=== PATIENT | male | born 1990 | race Hispanic/Latino ===

== ENCOUNTER 2020-10-01 16:30 | Emergency (ER) | payer SELFPAY ==
--- OUTSIDE RECORDS SUMMARY | 2020-10-01 16:33 | XMS REPORT | Continuity of Care Document ---
:1990 Author Organization [facility] t Address [address] [place] [address] Care Team Providers Name Role Phone Tod De Los Santos Attending Clinician Doctor Unassigned, Name Attending Clinician Unavailable Problems This patient has no known problems. Allergies, Adverse Reactions, Alerts This patient has no known allergies or adverse reactions. Medications This patient has no known medications. Procedures This patient has no known procedures. Encounters Start End Encounter Admission Attending Care Care Encounter Source Date/Time Date/Time Type Type Clinicians Facility Department ID 2019-02-28 2019-02-28 [facility] [id number] 16:34:50 22:20:00 Yris Jones [id number] [place] [id number] [place] [id number] 2019-02-28 2019-02-28 Orders Doctor ORANTES [id number] 00:00:00 00:00:00 Only UnassignedGRACIELA [id number] [place] [id number] Results This patient has no known results.
--- NOTE | 2020-10-01 19:30 | ER ---
Nurse's Notes [facility] Name: Noman Cabral Jr Age: 30 yrs Sex: Male : 1990 Arrival Date: 10/01/2020 Time: 16:36 Bed 28 Private MD: Diagnosis: Streptococcal tonsillitis Presentation: 10/01 16:39 Chief complaint: Patient states: Sore throat and slight cough for 2 days. Daughter had ll1 strep recently. Coronavirus screen: Client denies travel out of the [place] in the last 14 days. cough unrelated to allergies, headache, sore throat, Client presents with at least one sign or symptom that may indicate coronavirus-19. Standard/surgical mask placed on the client. Ebola Screen: Patient denies travel to an Ebola-affected area in the 21 days before illness onset. Initial Sepsis Screen: Does the patient meet any 2 criteria? No. Patient's initial sepsis screen is negative. Does the patient have a suspected source of infection? Yes: Other: sore throat/cough. Risk Assessment: Do you want to hurt yourself or someone else? Patient reports no desire to harm self or others. Onset of symptoms was September 30, 2020. 16:39 Method Of Arrival: Ambulatory ll1 16:39 Acuity: JULIANA 4 ll1 Historical: - Allergies: 16:41 No Known Allergies; ll1 - PMHx: 16:41 None; ll1 - PSHx: 16:41 Right femur fx; ll1 - Immunization history:: Flu vaccine is up to date. - Social history:: Smoking status: Patient reports the use of cigarette tobacco products, smokes one-half pack cigarettes per day. Screenin:24 Abuse screen: Denies threats or abuse. Nutritional screening: No deficits noted. ll1 Tuberculosis screening: No symptoms or risk factors identified. Fall Risk None identified. Total Tolbert Fall Scale indicates No Risk (0-24 pts). Assessment: 19:23 General: Appears in no apparent distress. Behavior is calm, cooperative, appropriate ll1 for age. Pain: Complains of pain in sore throat Quality of pain is described as aching. Neuro: No deficits noted. Cardiovascular: No deficits noted. Respiratory: Airway is patent Trachea midline Respiratory effort is even, unlabored, Respiratory pattern is regular, symmetrical, Breath sounds are clear bilaterally. EENT: Throat is reddened Reports pain when swallowing. Vital Signs: 16:39 BP 149 / 83; Pulse 71; Resp 17; Temp 99.8; Pulse Ox 96% ; Weight 97.52 kg; Height 5 ft. ll1 10 in. (177.80 cm); Pain 8/10; 16:39 Body Mass Index 30.85 (97.52 kg, 177.80 cm) ll1 ED Course: 16:36 Patient arrived in ED. ll1 16:40 Triage completed. ll1 16:41 Arm band placed on. ll1 19:18 Lul Christensen PA is PHCP. jr8 19:18 Larry Ordonez MD is Attending Physician. jr8 19:22 Wiley Davidson, RN is Primary Nurse. em 19:24 Patient has correct armband on for positive identification. Call light in reach. Side ll1 rails up X 1. 19:37 No provider procedures requiring assistance completed. Patient did not have IV access ll1 during this emergency room visit. Administered Medications: No medications were administered Outcome: 19:30 Discharge ordered by . jr8 19:37 Discharged to home ambulatory. ll1 19:37 Condition: stable 19:37 Discharge instructions given to patient, Instructed on discharge instructions, follow up and referral plans. medication usage, Demonstrated understanding of instructions, follow-up care, medications, Prescriptions given X 1. 19:38 Patient left the ED. ll1 Signatures: Wiley Davidson, RN JOSEFA Lul Christensen PA PA Janice Bauman RN RN 1
--- NOTE | 2020-10-01 19:30 | EDPHYS ---
Physician Documentation [facility] Name: Noman Cabral Jr Age: 30 yrs Sex: Male : 1990 Arrival Date: 10/01/2020 Time: 16:36 Bed 28 Private MD: ED Physician Larry Ordonez HPI: 10/01 20:06 This 30 yrs old Male presents to ER via Ambulatory with complaints of Sore jr8 Throat. 20:06 The patient presents with sore throat. The patient describes throat pain as constant, jr8 raw. Onset: The symptoms/episode began/occurred acutely, yesterday. Severity of symptoms: At their worst the symptoms were mild, in the emergency department the symptoms are unchanged. Modifying factors: The symptoms are alleviated by nothing, the symptoms are aggravated by swallowing, The patient has had contact with sick daughter, diagnosed with strep a few days ago. Associated signs and symptoms: The patient has no apparent associated signs or symptoms. The patient has not experienced similar symptoms in the past. The patient has not recently seen a physician. Historical: - Allergies: 16:41 No Known Allergies; ll1 - PMHx: 16:41 None; ll1 - PSHx: 16:41 Right femur fx; ll1 - Immunization history:: Flu vaccine is up to date. - Social history:: Smoking status: Patient reports the use of cigarette tobacco products, smokes one-half pack cigarettes per day. ROS: 20:06 Eyes: Negative for injury, pain, redness, and discharge, Neck: Negative for injury, jr8 pain, and swelling, Cardiovascular: Negative for chest pain, palpitations, and edema, Respiratory: Negative for shortness of breath, cough, wheezing, and pleuritic chest pain, Abdomen/GI: Negative for abdominal pain, nausea, vomiting, diarrhea, and constipation, Back: Negative for injury and pain, MS/Extremity: Negative for injury and deformity, Skin: Negative for injury, rash, and discoloration, Neuro: Negative for headache, weakness, numbness, tingling, and seizure. 20:06 ENT: Positive for sore throat, Negative for drainage from ear(s), ear pain, tinnitus, rhinorrhea, sinus congestion, difficulty swallowing, difficulty handling secretions, hoarseness. Exam: 20:06 Eyes: Pupils equal round and reactive to light, extra-ocular motions intact. Lids and jr8 lashes normal. Conjunctiva and sclera are non-icteric and not injected. Cornea within normal limits. Periorbital areas with no swelling, redness, or edema. ENT: Nares patent. No nasal discharge, no septal abnormalities noted. Tympanic membranes are normal and external auditory canals are clear. Oropharynx with redness. No swelling, or masses, exudates, or evidence of obstruction, uvula midline. Mucous membranes moist. Neck: Trachea midline, no thyromegaly or masses palpated, and no cervical lymphadenopathy. Supple, full range of motion without nuchal rigidity, or vertebral point tenderness. No Meningismus. Cardiovascular: Regular rate and rhythm with a normal S1 and S2. No gallops, murmurs, or rubs. Normal PMI, no JVD. No pulse deficits. Respiratory: Lungs have equal breath sounds bilaterally, clear to auscultation and percussion. No rales, rhonchi or wheezes noted. No increased work of breathing, no retractions or nasal flaring. Abdomen/GI: Soft, non-tender, with normal bowel sounds. No distension or tympany. No guarding or rebound. No evidence of tenderness throughout. Back: No spinal tenderness. No costovertebral tenderness. Full range of motion. Skin: Warm, dry with normal turgor. Normal color with no rashes, no lesions, and no evidence of cellulitis. MS/ Extremity: Pulses equal, no cyanosis. Neurovascular intact. Full, normal range of motion. Neuro: Awake and alert, GCS 15, oriented to person, place, time, and situation. Cranial nerves II-XII grossly intact. Motor strength 5/5 in all extremities. Sensory grossly intact. Cerebellar exam normal. Normal gait. Vital Signs: 16:39 BP 149 / 83; Pulse 71; Resp 17; Temp 99.8; Pulse Ox 96% ; Weight 97.52 kg; Height 5 ft. ll1 10 in. (177.80 cm); Pain 8/10; 16:39 Body Mass Index 30.85 (97.52 kg, 177.80 cm) ll1 MDM: 19:18 Patient medically screened. jr8 19:29 Data reviewed: vital signs, nurses notes, lab test result(s). Data interpreted: Pulse jr8 oximetry: on room air is 96 %. Interpretation: normal. Counseling: I had a detailed discussion with the patient and/or guardian regarding: the historical points, exam findings, and any diagnostic results supporting the discharge/admit diagnosis, lab results, the need for outpatient follow up, a family practitioner, to return to the emergency department if symptoms worsen or persist or if there are any questions or concerns that arise at home. 10/01 19:29 Order name: Strep jr8 10/01 19:29 Order name: Group A Streptococcus Rapid Vt EDMS Administered Medications: No medications were administered Disposition: 10/01/20 19:30 Discharged to Home. Impression: Streptococcal tonsillitis. - Condition is Stable. - Discharge Instructions: Strep Throat. - Prescriptions for Augmentin 875- 125 mg Oral Tablet - take 1 tablet by ORAL route every 12 hours for 10 days; 20 tablet. - Work release form, Medication Reconciliation Form, Thank You Letter, Antibiotic Education, Prescription Opioid Use form. - Follow up: Private Physician; When: 5 - 6 days; Reason: Recheck today's complaints, Continuance of care, Re-evaluation by your physician. - Problem is new. - Symptoms have improved. Addendum: 10/04/2020 19:32 Co-signature as Attending Physician, Larry Ordonez MD. m a2 Signatures: Dispatcher [employer] EDMS Lul Christensen PA PA jr8 Larry Ordonez MD MD ma2 Janice Mathis RN RN ll1 Corrections: (The following items were deleted from the chart) 10/01 19:38 19:30 10/01/2020 19:30 Discharged to Home. Impression: Streptococcal tonsillitis. ll1 Condition is Stable. Forms are Medication Reconciliation Form, Thank You Letter, Antibiotic Education, Prescription Opioid Use. Follow up: Private Physician; When: 5 - 6 days; Reason: Recheck today's complaints, Continuance of care, Re-evaluation by your physician. Problem is new. Symptoms have improved. jr8
[2020-10-01 19:42] VITALS: BP 149/83; TEMP 99.8; O2SAT 96
== END 2020-10-01 19:38 | disposition home or self-care (01) ==
LOC: ER 16:30
DX: J03.00 Acute streptococcal tonsillitis, unspecified (principal); F17.210 Nicotine dependence, cigarettes, uncomplicated
CPT/HCPCS: 87070; 87081; 99282

== ENCOUNTER 2021-04-28 08:33 | Emergency (ER) | payer SELFPAY ==
[2021-04-28] MEDS ORDERED: HYDROCODONE/APAP 10/325 TAB ONE (10:05)
[2021-04-28] MEDS ORDERED: AMOX/K CLAV 875 MG TAB ONE (10:06)
[2021-04-28] MEDS ORDERED: KETOROLAC 30 MG/ML INJ ONE (10:06)
--- NOTE | 2021-04-28 10:49 | EDPHYS ---
Physician Documentation [facility] Name: Noman Cabral Jr Age: 30 yrs Sex: Male : 1990 Arrival Date: 04/28/2021 Time: 08:34 Bed 11 Private MD: ED Physician Tex Price HPI: 04/28 10:46 This 30 yrs old Male presents to ER via Ambulatory with complaints of Facial jmm Swelling - pain. 10:46 The patient presents with pain. Onset: The symptoms/episode began/occurred gradually, 1 jmm day(s) ago. Duration: The symptoms are continuous. Modifying factors: The symptoms are alleviated by nothing, the symptoms are aggravated by nothing. Is a 30-year-old male no chronic medical conditions presents emerge department with right lower molar pain beginning yesterday radiating to his throat. Denies fever, vomiting, shortness of breath.. Historical: - Allergies: 09:06 No Known Allergies; jl7 - Home Meds: 09:06 None [Active]; jl7 - PMHx: 09:06 None; jl7 - PSHx: 09:06 Right femur; jl7 - Immunization history:: Adult Immunizations not up to date, Client reports having NOT received the Covid vaccine. - Social history:: Smoking status: Patient reports the use of cigarette tobacco products. ROS: 10:46 Constitutional: Negative for fever, chills, and weight loss. jmm 10:46 ENT: Positive for dental pain. 10:46 All other systems are negative. Exam: 10:46 Constitutional: This is a well developed, well nourished patient who is awake, alert, jmm and in no acute distress. Head/Face: atraumatic. Eyes: EOMI, no conjunctival erythema appreciated 10:46 Neck: Trachea midline, Supple Chest/axilla: Normal chest wall appearance and motion. Cardiovascular: Regular rate and rhythm. No edema appreciated Respiratory: Normal respirations, no respiratory distress appreciated Abdomen/GI: Non distended, soft Back: Normal ROM Skin: General appearance color normal MS/ Extremity: Moves all extremities, no obvious deformities appreciated, no edema noted to the lower extremities Neuro: Awake and alert, normal gait Psych: Behavior is normal, Mood is normal, Patient is cooperative and pleasant 10:46 ENT: Mouth: Dental exam: pain, that is moderate, specifically in the lower right third molar (#32). 10:46 ENT: Posterior pharynx: is normal. Vital Signs: 09:05 BP 161 / 112; Pulse 82; Resp 17; Temp 98.2(O); Pulse Ox 100% on R/A; Weight 95.25 kg; jl7 Height 5 ft. 9 in. (175.26 cm); Pain 10; 09:50 BP 154 / 84; Pulse 60; Resp 18 S; Pulse Ox 98% on R/A; aa5 09:05 Body Mass Index 31.01 (95.25 kg, 175.26 cm) jl7 MDM: 09:31 Patient medically screened. [facility] 10:48 Data reviewed: vital signs, nurses notes. Counseling: I had a detailed discussion with edward the patient and/or guardian regarding: the historical points, exam findings, and any diagnostic results supporting the discharge/admit diagnosis, the need for outpatient follow up, to return to the emergency department if symptoms worsen or persist or if there are any questions or concerns that arise at home. Administered Medications: 09:45 Drug: Augmentin (Amoxicillin-Clavulanate) 875 mg Route: PO; aa5 10:25 Follow up: Response: No adverse reaction aa5 09:45 Drug: Driggs (HYDROcodone-acetaminophen) 10 mg-325 mg 1 tabs Route: PO; aa5 10:25 Follow up: Response: No adverse reaction aa5 09:47 Drug: Ketorolac 30 mg Route: IM; Site: left gluteus; aa5 10:25 Follow up: Response: No adverse reaction aa5 Disposition: 16:26 Co-signature as Attending Physician, Tex Price MD I agree with the assessment and kdr plan of care. Disposition Summary: 04/28/21 10:49 Discharge Ordered Location: Home [facility] Condition: Stable [facility] Diagnosis - Dental Pain [facility] Followup: [facility] - With: Zach Rodriguez DDS - When: 2 - 3 days - Reason: Recheck today's complaints, Continuance of care, Re-evaluation by your physician Discharge Instructions: - Discharge Summary Sheet [facility] - Dental Pain [facility] Forms: - Medication Reconciliation Form [facility] - Thank You Letter [facility] - Antibiotic Education [facility] - Prescription Opioid Use [facility] Prescriptions: - penicillin V potassium 500 mg Oral tablet - take 1 tablet by ORAL route 4 times per day for 10 days; 40 tablet; Refills: 0, jmm Product Selection Permitted Signatures: Tex Price MD MD kdr Mickail, Joel, PA PA jmm Calderon, Audri, RN RN aa5 Austyn Shepard RN RN jl7
--- NOTE | 2021-04-28 10:49 | ER ---
Nurse's Notes [facility] Name: Noman Cabral Jr Age: 30 yrs Sex: Male : 1990 Arrival Date: 04/28/2021 Time: 08:34 Bed 11 Private MD: Diagnosis: Dental Pain Presentation: 04/28 09:05 Chief complaint: Patient states: Pain to right lower tooth, swelling to right jaw x 1 jl7 day. Coronavirus screen: At this time, the client does not indicate any symptoms associated with coronavirus-19. Ebola Screen: No symptoms or risks identified at this time. Initial Sepsis Screen: Does the patient meet any 2 criteria? No. Patient's initial sepsis screen is negative. Does the patient have a suspected source of infection? No. Patient's initial sepsis screen is negative. Risk Assessment: Do you want to hurt yourself or someone else? Patient reports no desire to harm self or others. Onset of symptoms was April 28, 2021. 09:05 Method Of Arrival: Ambulatory jl7 09:05 Acuity: JULIANA 4 jl7 Triage Assessment: 09:06 General: Appears in no apparent distress. uncomfortable, Behavior is calm, cooperative, jl7 appropriate for age. Pain: Complains of pain in mouth Pain currently is 10 out of 10 on a pain scale. EENT: unable to inspect teeth, swelling noted to right side of face. Neuro: Level of Consciousness is awake, alert, obeys commands, Oriented to person, place, time, situation. Cardiovascular: Patient's skin is warm and dry. Respiratory: Airway is patent Respiratory effort is even, unlabored, Respiratory pattern is regular, symmetrical. Derm: Skin is pink, warm \T\ dry. Historical: - Allergies: 09:06 No Known Allergies; jl7 - Home Meds: 09:06 None [Active]; jl7 - PMHx: 09:06 None; jl7 - PSHx: 09:06 Right femur; jl7 - Immunization history:: Adult Immunizations not up to date, Client reports having NOT received the Covid vaccine. - Social history:: Smoking status: Patient reports the use of cigarette tobacco products. Screenin:30 Abuse screen: Denies threats or abuse. Nutritional screening: No deficits noted. aa5 Tuberculosis screening: No symptoms or risk factors identified. Fall Risk None identified. Assessment: 09:20 General: Appears uncomfortable, Behavior is calm, cooperative. Pain: Complains of pain aa5 in right jaw Pain currently is 10 out of 10 on a pain scale. Neuro: Level of Consciousness is awake, alert, obeys commands, Oriented to person, place, time, situation. Cardiovascular: Patient's skin is warm and dry. Respiratory: Airway is patent Respiratory effort is even, unlabored, Respiratory pattern is regular, symmetrical. GI: Abdomen is round non-distended. : No signs and/or symptoms were reported regarding the genitourinary system. EENT: Reports toothache . Derm: Skin is pink, warm \T\ dry. Musculoskeletal: Range of motion: intact in all extremities. 09:45 Reassessment: Patient is alert, oriented x 3, equal unlabored respirations, skin aa5 warm/dry/pink. 10:25 Reassessment: Patient states feeling better. Pt currently resting in bed with eyes aa5 closed, equal and unlabored respirations, skin is pink/warm/dry. Pt easy to awaken to verbal stimuli. . Pain: Pain currently is 5 out of 10 on a pain scale. Vital Signs: 09:05 BP 161 / 112; Pulse 82; Resp 17; Temp 98.2(O); Pulse Ox 100% on R/A; Weight 95.25 kg; jl7 Height 5 ft. 9 in. (175.26 cm); Pain 10/10; 09:50 BP 154 / 84; Pulse 60; Resp 18 S; Pulse Ox 98% on R/A; aa5 09:05 Body Mass Index 31.01 (95.25 kg, 175.26 cm) jl7 ED Course: 08:34 Patient arrived in ED. am2 08:40 Jorge Jose PA is PHCP. m 08:40 Tex Price MD is Attending Physician. jmm 09:06 Triage completed. jl7 09:06 Arm band placed on right wrist. jl7 09:20 Patient has correct armband on for positive identification. Adult w/ patient. aa5 09:46 Bess Wren, JOSEFA is Primary Nurse. aa5 10:48 Zach Rodriguez DDS is Referral Physician. [facility] 10:59 No provider procedures requiring assistance completed. Patient did not have IV access jl7 during this emergency room visit. Administered Medications: 09:45 Drug: Augmentin (Amoxicillin-Clavulanate) 875 mg Route: PO; aa5 10:25 Follow up: Response: No adverse reaction aa5 09:45 Drug: [place] (HYDROcodone-acetaminophen) 10 mg-325 mg 1 tabs Route: PO; aa5 10:25 Follow up: Response: No adverse reaction aa5 09:47 Drug: Ketorolac 30 mg Route: IM; Site: left gluteus; aa5 10:25 Follow up: Response: No adverse reaction aa5 Outcome: 10:49 Discharge ordered by . edward 10:59 Discharged to home ambulatory. jl7 10:59 Condition: stable 10:59 Discharge instructions given to patient, family, Instructed on discharge instructions, follow up and referral plans. medication usage, Demonstrated understanding of instructions, follow-up care, medications, Prescriptions given X 1. 11:00 Patient left the ED. jl7 Signatures: Jorge Jose PA PA jmm Calderon, Audri RN RN aa5 Austyn Shepard RN RN [email or web address] Glenis Hennessy am2
[2021-04-28 11:05] VITALS: TEMP 98.2
[2021-04-28 11:06] VITALS: BP 154/84; O2SAT 98
== END 2021-04-28 11:00 | disposition home or self-care (01) ==
LOC: ER 08:33
DX: K08.89 Other specified disorders of teeth and supporting structures (principal); Z72.0 Tobacco use
CPT/HCPCS: 96372; 99283

== ENCOUNTER 2021-11-01 10:14 | Emergency (ER) | payer SELFPAY ==
[2021-11-01] MEDS ORDERED: TETRACAINE HCL 0.5% 4ML OPTH ONE (10:46)
[2021-11-01] MEDS ORDERED: FLUORESCEIN SODIUM 1 MG/WRAP ONE (10:46)
[2021-11-01] MEDS ORDERED: TOBRAMYCIN SULF 0.3% OPTH OINT ONE (10:48)
--- NOTE | 2021-11-01 11:08 | ER ---
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 Coronavirus screen: At this time, the client does not indicate any symptoms associated with coronavirus-19. Ebola Screen: Patient negative for fever greater than or equal to 101.5 degrees Fahrenheit, and additional compatible Ebola Virus Disease symptoms Patient denies exposure to infectious person. Patient denies travel to an Ebola-affected area in the 21 days before illness onset. No symptoms or risks identified at this time. Initial Sepsis Screen: Does the patient meet any 2 criteria? No. Patient's initial sepsis screen is negative. Does the patient have a suspected source of infection? No. Patient's initial sepsis screen is negative. Risk Assessment: Do you want to hurt yourself or someone else? Patient reports no desire to harm self or others. Onset of symptoms was October 29, 2021. 10:32 Method Of Arrival: Ambulatory iw 10:32 Acuity: JULIANA 4 iw Historical: - Allergies: 10:34 No Known Allergies; iw - Home Meds: 10:34 None [Active]; iw - PMHx: 10:34 None; iw - Immunization history:: Adult Immunizations unknown. - Social history:: Smoking status: unknown. - Family history:: not pertinent. Screenin:57 Abuse screen: Denies threats or abuse. Denies injuries from another. Nutritional ab2 screening: No deficits noted. Tuberculosis screening: No symptoms or risk factors identified. Fall Risk None identified. Assessment: 10:56 General: Appears in no apparent distress. comfortable, Behavior is calm, cooperative, ab2 appropriate for age. Pain: Complains of pain in left eye Pain currently is 7 out of 10 on a pain scale. 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 Gait is steady, Speech is normal, Facial symmetry appears normal. Cardiovascular: No deficits noted. Denies chest pain, shortness of breath, Heart tones S1 S2 Patient's skin is warm and dry. Respiratory: Airway is patent Respiratory effort is even, unlabored, Respiratory pattern is regular, symmetrical, Breath sounds are clear bilaterally. GI: No deficits noted. No signs and/or symptoms were reported involving the gastrointestinal system. : No deficits noted. No signs and/or symptoms were reported regarding the genitourinary system. EENT: Reports blurred vision. Derm: No deficits noted. No signs and/or symptoms reported regarding the dermatologic system. Skin is intact, is healthy with good turgor, Skin is pink, warm \T\ dry. Musculoskeletal: No deficits noted. No signs and/or symptoms reported regarding the musculoskeletal system. Vital Signs: 10:32 BP 157 / 97; Pulse 60; Resp 16; Temp 98.1; Pulse Ox 100% on R/A; iw 11:16 BP 143 / 79; Pulse 67; Resp 17; Pulse Ox 99% on R/A; ab2 ED Course: 10:19 Patient arrived in ED. ds1 10:34 Triage completed. iw 10:37 Joe Rivas is Primary Nurse. ab2 10:38 Brant Max MD is Attending Physician. monika 10:56 Arm band placed on right wrist. ab2 10:57 Patient has correct armband on for positive identification. Bed in low position. Call ab2 light in reach. Side rails up X2. 10:57 No provider procedures requiring assistance completed. Assist provider with eye exam of ab2 left eye. using fluorescein stain, Performed by Brant Max MD. 11:07 Thiago Maxwell MD is Referral Physician. monika 11:17 Patient did not have IV access during this emergency room visit. ab2 Administered Medications: 10:45 CANCELLED (do not have medicationn): ERYTHromycin Ointment 1 application Ophthalmic onceab2 10:45 Drug: Tetracaine Drops 0.5 % 1 drops {Note: used by ED physician during eye exam.} ab2 Route: Ophthalmic; Site: left eye; 10:46 Drug: Tobramycin Drops (0.3 %) 1 drops Route: Ophthalmic; Site: left eye; ab2 Outcome: 11:07 Discharge ordered by . monika 11:16 Discharged to home ambulatory. ab2 11:16 Condition: good 11:16 Discharge instructions given to patient, Instructed on discharge instructions, follow up and referral plans. medication usage, Demonstrated understanding of instructions, follow-up care, medications, Prescriptions given X 2. 11:17 Patient left the ED. ab2 Signatures: Brant Max MD MD cha Sanford, Demi ds1 Ifrah Hart RN RN Joe Tatum ab2
--- NOTE | 2021-11-01 11:08 | EDPHYS ---
Physician Documentation [facility] Name: Noman Cabral Jr Age: 31 yrs Sex: Male : 1990 Arrival Date: 11/01/2021 Time: 10:19 Bed 14 Private MD: ED Physician Brant Max HPI: 11/01 11:01 This 31 yrs old Male presents to ER via Ambulatory with complaints of Foreign monika Body In Eye. 11:01 The patient is experiencing foreign body sensation, pain, redness. Onset: The monika symptoms/episode began/occurred 2 day(s) ago. Duration: the symptoms are continuous. Aggravated by blinking, closing eye, light, opening eye, pressure, Alleviated by nothing. Associated signs and symptoms: Pertinent positives: None. Pertinent negatives: None. Patient does not utilize any form of vision correction. Severity of symptoms: At their worst the symptoms were moderate in the emergency department the symptoms are unchanged. The patient has not experienced similar symptoms in the past. Historical: - Allergies: 10:34 No Known Allergies; iw - Home Meds: 10:34 None [Active]; iw - PMHx: 10:34 None; iw - Immunization history:: Adult Immunizations unknown. - Social history:: Smoking status: unknown. - Family history:: not pertinent. ROS: 11:01 Constitutional: Negative for fever, chills, and weight loss, ENT: Negative for injury, monika pain, and discharge, Neck: Negative for injury, pain, and swelling, Cardiovascular: Negative for chest pain, palpitations, and edema, Respiratory: Negative for shortness of breath, cough, wheezing, and pleuritic chest pain, Abdomen/GI: Negative for abdominal pain, nausea, vomiting, diarrhea, and constipation, Back: Negative for injury and pain, : Negative for injury, bleeding, discharge, and swelling, MS/Extremity: Negative for injury and deformity, Skin: Negative for injury, rash, and discoloration, Neuro: Negative for headache, weakness, numbness, tingling, and seizure, Psych: Negative for depression, anxiety, suicide ideation, homicidal ideation, and hallucinations, Allergy/Immunology: Negative for hives, rash, and allergies, Endocrine: Negative for neck swelling, polydipsia, polyuria, polyphagia, and marked weight changes, Hematologic/Lymphatic: Negative for swollen nodes, abnormal bleeding, and unusual bruising. 11:01 Eyes: Positive for pain, redness, swelling, of the iris of left eye. 11:01 ENT: Positive for Exam: 11:01 Constitutional: This is a well developed, well nourished patient who is awake, alert, monika and in no acute distress. Head/Face: Normocephalic, atraumatic. ENT: Nares patent. No nasal discharge, no septal abnormalities noted. Tympanic membranes are normal and external auditory canals are clear. Oropharynx with no redness, swelling, or masses, exudates, or evidence of obstruction, uvula midline. Mucous membranes moist. Neck: Trachea midline, no thyromegaly or masses palpated, and no cervical lymphadenopathy. Supple, full range of motion without nuchal rigidity, or vertebral point tenderness. No Meningismus. Chest/axilla: Normal chest wall appearance and motion. Nontender with no deformity. No lesions are appreciated. Cardiovascular: Regular rate and rhythm with a normal S1 and S2. No gallops, murmurs, or rubs. Normal PMI, no JVD. No pulse deficits. Respiratory: Lungs have equal breath sounds bilaterally, clear to auscultation and percussion. No rales, rhonchi or wheezes noted. No increased work of breathing, no retractions or nasal flaring. Abdomen/GI: Soft, non-tender, with normal bowel sounds. No distension or tympany. No guarding or rebound. No evidence of tenderness throughout. Back: No spinal tenderness. No costovertebral tenderness. Full range of motion. Male : Normal genitalia with no discharge or lesions. Skin: Warm, dry with normal turgor. Normal color with no rashes, no lesions, and no evidence of cellulitis. MS/ Extremity: Pulses equal, no cyanosis. Neurovascular intact. Full, normal range of motion. Neuro: Awake and alert, GCS 15, oriented to person, place, time, and situation. Cranial nerves II-XII grossly intact. Motor strength 5/5 in all extremities. Sensory grossly intact. Cerebellar exam normal. Normal gait. Psych: Awake, alert, with orientation to person, place and time. Behavior, mood, and affect are within normal limits. 11:01 Head/face: Exam is negative for 11:01 Eyes: Pupils: no acute changes, Extraocular movements: no acute changes, Conjunctiva: injected, Corneas: abrasion, that is small, on the left, at 2 o'clock, Sclera: injected. 11:01 ENT: Exam is negative for 11:01 Neck: Exam negative for Vital Signs: 10:32 BP 157 / 97; Pulse 60; Resp 16; Temp 98.1; Pulse Ox 100% on R/A; iw 11:16 BP 143 / 79; Pulse 67; Resp 17; Pulse Ox 99% on R/A; ab2 MDM: 10:38 Patient medically screened. monika 11:04 Differential diagnosis: Corneal abrasion of Corneal ulcer of Data reviewed: vital [facility] signs, nurses notes. Data interpreted: media monitor: Pulse oximetry: is not applicable for this patient encounter. on room air is 100 %. Counseling: I had a detailed discussion with the patient and/or guardian regarding: the historical points, exam findings, and any diagnostic results supporting the discharge/admit diagnosis, lab results, radiology results, the need for outpatient follow up, for definitive care, an opthalmologist. 11/01 10:38 Order name: Eye Tray; Complete Time: 10:45 [facility] 11/01 10:38 Order name: Fluoresene Opth strip; Complete Time: 10:45 [facility] 11/01 10:38 Order name: Visual Acuity; Complete Time: 10:45 [facility] Administered Medications: 10:45 CANCELLED (do not have medicationn): ERYTHromycin Ointment 1 application Ophthalmic onceab2 10:45 Drug: Tetracaine Drops 0.5 % 1 drops {Note: used by ED physician during eye exam.} ab2 Route: Ophthalmic; Site: left eye; 10:46 Drug: Tobramycin Drops (0.3 %) 1 drops Route: Ophthalmic; Site: left eye; ab2 Disposition Summary: 11/01/21 11:07 Discharge Ordered Location: Home monika Problem: new monika Symptoms: are unchanged monika Condition: Stable monika Diagnosis - Marginal corneal ulcer, left eye monika Followup: [facility] - With: Thiago Maxwell MD - When: Upon discharge from the Emergency Department - Reason: Recheck today's complaints, Re-evaluation by your physician Discharge Instructions: - Discharge Summary Sheet monika - Corneal Ulcer monika - How to Use Eye Drops and Eye Ointments monika - Eye Patch, Adult monika Forms: - Medication Reconciliation Form monika - Thank You Letter monika - Antibiotic Education monika - Prescription Opioid Use [facility] Prescriptions: - Vigamox 0.5 % Ophthalmic Drops - instill 1 drop by OPHTHALMIC route every 4 hours for 7 days; 5 milliliter; [facility] Refills: 0, Product Selection Permitted - Tylenol-Codeine #3 300 mg-30 mg Oral - take 2 tablet by ORAL route every 6 hours; 20 tablet; Refills: 0, Product [facility] Selection Permitted Signatures: Brant Max MD MD cha Williams, Irene, RN RN iw Bleininger, Alexis ab2 Corrections: (The following items were deleted from the chart) 10:45 10:38 ERYTHromycin Ointment 1 application Ophthalmic once ordered. [facility] ab2
[2021-11-01 11:23] VITALS: TEMP 98.1
[2021-11-01 11:25] VITALS: BP 143/79; O2SAT 99
== END 2021-11-01 11:17 | disposition home or self-care (01) ==
LOC: ER 10:14
DX: H16.042 Marginal corneal ulcer, left eye (principal)
CPT/HCPCS: 99283

== ENCOUNTER 2022-02-20 15:16 | Emergency (ER) | payer SELFPAY ==
--- NOTE | 2022-02-20 16:04 | RAD REPORT ---
EXAM DESCRIPTION: RAD - Knee Left 3 View - 02/20/2022 3:57 pm CLINICAL HISTORY: PAIN COMPARISON: No comparisons FINDINGS: No bone or joint abnormality detected.
--- NOTE | 2022-02-20 17:09 | ER ---
Nurse's Notes [facility] Name: Noman Cabral Jr Age: 31 yrs Sex: Male : 1990 Arrival Date: 02/20/2022 Time: 15:18 Bed DIS3 Private MD: Diagnosis: Unspecified internal derangement of left knee Presentation: 02/20 15:32 Chief complaint: Patient states: stepped in a hole yesterday and hurt his left knee, iw now has pain and swelling. Coronavirus screen: At this time, the client does not indicate any symptoms associated with coronavirus-19. Ebola Screen: Patient negative for fever greater than or equal to 101.5 degrees Fahrenheit, and additional compatible Ebola Virus Disease symptoms Patient denies exposure to infectious person. Patient denies travel to an Ebola-affected area in the 21 days before illness onset. No symptoms or risks identified at this time. Initial Sepsis Screen: Does the patient meet any 2 criteria? No. Patient's initial sepsis screen is negative. Does the patient have a suspected source of infection? No. Patient's initial sepsis screen is negative. Risk Assessment: Do you want to hurt yourself or someone else? Patient reports no desire to harm self or others. Onset of symptoms was February 19, 2022. 15:32 Method Of Arrival: Ambulatory iw 15:32 Acuity: JULIANA 4 iw Historical: - PSHx: 15:32 Right femur; iw Vital Signs: 16:08 BP 136 / 77; Pulse 87; Resp 16; Temp 98.6; Pulse Ox 100% on R/A; iw ED Course: 15:18 Patient arrived in ED. as 15:23 Olaf Ybarra NP is PHCP. pm1 15:23 Errol Jensen DO is Attending Physician. pm1 15:32 Triage completed. iw 15:50 Arm band placed on. iw 15:59 Knee Left 3 View XRAY In Process Unspecified. EDMS 17:05 Ifrah Hart, JOSEFA is Primary Nurse. iw 17:08 Tacho Eric MD is Referral Physician. pm1 17:42 No provider procedures requiring assistance completed. Patient did not have IV access hb during this emergency room visit. Administered Medications: 17:14 Drug: Ketorolac 60 mg Route: IM; Site: left ventrogluteal; iw 17:41 Follow up: Response: No adverse reaction hb Outcome: 17:08 Discharge ordered by . pm1 17:42 Discharged to home ambulatory, with crutches. hb 17:42 Condition: stable 17:42 Discharge instructions given to patient, Instructed on discharge instructions, follow up and referral plans. medication usage, crutch walking, Demonstrated understanding of instructions, follow-up care, medications, wound care, Prescriptions given X 2. 17:43 Patient left the ED. hb Signatures: Dispatcher [employer] Marjorie Castillo Irene, RN RN iw Olaf Ybarra, NICOLE MARKET RESEARCH EXECUTIVE pm1 Lisa Zavaleta RN RN hb
--- NOTE | 2022-02-20 17:09 | EDPHYS ---
Physician Documentation [facility] Name: Noman Cabral Jr Age: 31 yrs Sex: Male : 1990 Arrival Date: 02/20/2022 Time: 15:18 Bed DIS3 Private MD: ED Physician Errol Jensen HPI: 02/20 15:34 This 31 yrs old Male presents to ER via Ambulatory with complaints of Knee pm1 Pain - swelling. 15:34 The patient presents with pain, that is acute, swelling. The complaints affect the pm1 medial aspect of left knee. Context: The problem was sustained at work, resulted from Patient stepped into a hole with 1 leg going deep into a hole and his other leg going up towards his chest resulting in him being in a near split in a hole, the patient can fully bear weight, the patient is able to ambulate, with mild difficulty, Problem is a result from a previous injury: No. Onset: The symptoms/episode began/occurred yesterday. Modifying factors: the symptoms are aggravated by Straightening out left leg. Associated signs and symptoms: The patient has no apparent associated signs or symptoms. Treatment prior to arrival includes: icing the affected extremity, over the counter medications, NSAIDS. Severity of symptoms: in the emergency department the symptoms have improved, mildly. The patient has not experienced similar symptoms in the past. The patient has not recently seen a physician. Historical: - PSHx: 15:32 Right femur; iw ROS: 15:34 Constitutional: Negative for fever, chills, and weight loss, Cardiovascular: Negative pm1 for chest pain, palpitations, and edema, Respiratory: Negative for shortness of breath, cough, wheezing, and pleuritic chest pain. 15:34 Skin: Negative for injury, rash, and discoloration, Neuro: Negative for headache, weakness, numbness, tingling, and seizure. 15:34 MS/extremity: Positive for pain, swelling, tenderness, of the medial aspect of left knee, Negative for decreased range of motion, deformity. 15:34 All other systems are negative. Exam: 15:34 Constitutional: This is a well developed, well nourished patient who is awake, alert, pm1 and in no acute distress. Head/Face: Normocephalic, atraumatic. 15:34 Skin: Warm, dry with normal turgor. Normal color with no rashes, no lesions, and no evidence of cellulitis. 15:34 Cardiovascular: Exam negative for acute changes, Rate: normal, Rhythm: regular, Pulses: no pulse deficits are appreciated. 15:34 Respiratory: Exam negative for acute changes, respiratory distress, shortness of breath. 15:34 Musculoskeletal/extremity: Extremities: grossly normal except: noted in the medial aspect of left knee: Pain reproduced to medial aspect of the left knee with valgus stress, lateral rotation and positive for Apley maneuver. 15:34 Neuro: Exam negative for acute changes, Orientation: is normal, Mentation: is normal, Motor: is normal, moves all fours. Vital Signs: 16:08 BP 136 / 77; Pulse 87; Resp 16; Temp 98.6; Pulse Ox 100% on R/A; iw MDM: 15:54 Patient medically screened. pm1 17:07 Data reviewed: vital signs. Data interpreted: Pulse oximetry: on room air is 100 %. pm1 Interpretation: normal. Counseling: I had a detailed discussion with the patient and/or guardian regarding: the historical points, exam findings, and any diagnostic results supporting the discharge/admit diagnosis, radiology results, the need for outpatient follow up, a orthopedic surgeon, for MRI, to return to the emergency department if symptoms worsen or persist or if there are any questions or concerns that arise at home. 02/20 15:33 Order name: Knee Left 3 View XRAY; Complete Time: 16:16 pm1 02/20 15:33 Order name: Knee Immobilizer; Complete Time: 17:42 pm1 02/20 15:33 Order name: Crutches; Complete Time: 17:42 pm1 02/20 15:33 Order name: Ice pack; Complete Time: 17:41 pm1 Administered Medications: 17:14 Drug: Ketorolac 60 mg Route: IM; Site: left ventrogluteal; iw 17:41 Follow up: Response: No adverse reaction hb Disposition: 21:09 Co-signature as Attending Physician, Errol Jensen DO I was immediately available on-site ms3 in the Emergency Department for consultation in the care of the patient. . Disposition Summary: 02/20/22 17:08 Discharge Ordered Location: Home pm1 Problem: new pm1 Symptoms: have improved pm1 Condition: Stable pm1 Diagnosis - Unspecified internal derangement of left knee pm1 Followup: pm1 - With: Emergency Department - When: As needed - Reason: Worsening of condition Followup: pm1 - With: Private Physician - When: 2 - 3 days - Reason: Recheck today's complaints, Continuance of care, Re-evaluation by your physician Followup: pm1 - With: Tacho Eric MD - When: 2 - 3 days - Reason: Recheck today's complaints, Continuance of care, Re-evaluation by your physician Discharge Instructions: - Discharge Summary Sheet pm1 - Crutch Use, Adult pm1 - How to Use a Knee Immobilizer pm1 - Acute Knee Pain, Adult pm1 Forms: - Medication Reconciliation Form pm1 - Thank You Letter pm1 - Antibiotic Education pm1 - Prescription Opioid Use pm1 - Work release form iw Prescriptions: - Tylenol-Codeine #3 300 mg-30 mg Oral - take 2 tablet by ORAL route every 6 hours As needed; 20 tablet; Refills: 0, pm1 Product Selection Permitted - Diclofenac Sodium 75 mg Oral tablet,delayed release (DR/EC) - take 1 tablet by ORAL route 2 times per day As needed; 30 tablet; Refills: 0, pm1 Product Selection Permitted Signatures: Dispatcher [employer] Ifrah Nielsen RN RN iw Olaf Ybarra NP [employer] pm1 Errol Jensen DO DO ms3 Lisa Zavaleta RN
[2022-02-20] MEDS ORDERED: KETOROLAC 30 MG/ML INJ ONE (17:16)
[2022-02-20 19:04] VITALS: BP 136/77; TEMP 98.6; O2SAT 100
== END 2022-02-20 17:43 | disposition home or self-care (01) ==
LOC: ER 15:16
DX: M23.92 Unspecified internal derangement of left knee (principal)
CPT/HCPCS: 96372; 99284

== ENCOUNTER 2024-02-17 08:49 | Emergency (ER) | payer SELFPAY ==
--- NOTE | 2024-02-17 09:45 | ER ---
Nurse's Notes [facility] Name: Noman Cabral Jr Age: 33 yrs Sex: Male : 1990 Arrival Date: 02/17/2024 Time: 08:49 Bed 10 Private MD: Diagnosis: Dental caries, unspecified Presentation: 02/16 09:10 Chief complaint: Patient states: he started having a toothache yesterday. patient ap3 reports the pain is on the bottom back tooth. patient states he feels like his mouth is starting to swell. patient currently rates his pain as a 8/10 on the pain scale. Coronavirus screen: At this time, the client does not indicate any symptoms associated with coronavirus-19. Ebola Screen: No symptoms or risks identified at this time. Initial Sepsis Screen: Does the patient meet any 2 criteria? No. Patient's initial sepsis screen is negative. Does the patient have a suspected source of infection? No. Patient's initial sepsis screen is negative. Risk Assessment: Do you want to hurt yourself or someone else? Patient reports no desire to harm self or others. Onset of symptoms was February 16, 2024. 09:10 Method Of Arrival: Ambulatory ap3 09:10 Acuity: JULIANA 4 ap3 Triage Assessment: 09:12 General: Appears in no apparent distress. Behavior is calm, cooperative, appropriate ap3 for age. Pain: Complains of pain in right rear lower teeth Pain currently is 8 out of 10 on a pain scale. Pain began 1 day ago. EENT: Reports pain in right rear lower teeth. Neuro: Level of Consciousness is awake, alert, obeys commands, Oriented to person, place, time, situation, Appropriate for age. Cardiovascular: Patient's skin is warm and dry. Respiratory: Airway is patent Respiratory effort is even, unlabored, Respiratory pattern is regular, symmetrical. Historical: - Allergies: 09:11 No Known Allergies; ap3 - PMHx: 09:11 None; ap3 - PSHx: 09:11 Right femur; ap3 - Immunization history:: Client reports receiving the 2nd dose of the Covid vaccine. - Infectious Disease History:: Denies. - Social history:: Smoking status: Patient reports the use of cigarette tobacco products, smokes one-half pack cigarettes per day. - Family history:: not pertinent. Screenin:13 [facility] ED Fall Risk Assessment (Adult) History of falling in the last 3 months, ap3 including since admission No falls in past 3 months (0 pts) Confusion or Disorientation No (0 pts) Intoxicated or Sedated No (0 pts) Impaired Gait No (0 pts) Mobility Assist Device Used No (0 pt) Altered Elimination No (0 pt) Score/Fall Risk Level 0 - 2 = Low Risk Oriented to surroundings, Maintained a safe environment, Educated pt \T\ family on fall prevention, incl call for assistance when getting out of bed, Assessed \T\ reinforced patient's understanding of fall precautions, Hourly rounding (assess needs \T\ fall precautionary measures) done, Used ambulatory aids as needed (educated on \T\ assisted with), Used gait belt as appropriate. Abuse screen: Denies threats or abuse. Nutritional screening: No deficits noted. Tuberculosis screening: No symptoms or risk factors identified. Vital Signs: 09:10 BP 161 / 96; Pulse 57; Resp 17; Temp 98.5; Pulse Ox 100% ; Weight 79.38 kg; Height 5 ap3 ft. 9 in. ; Pain 8/10; 09:10 Body Mass Index 25.84 (79.38 kg, 175.26 cm) ap3 09:10 Pain Scale: Adult ap3 ED Course: 08:55 Patient arrived in ED. mg5 09:11 Brant Max MD is Attending Physician. monika 09:11 Triage completed. ap3 09:13 Arm band placed on left wrist. ap3 09:37 Glenis Cruz, JOSEFA is Primary Nurse. ap3 09:44 Zach Rodriguez DDS is Referral Physician. monika 11:18 Patient has correct armband on for positive identification. Provided Education on: ap3 discharge instructions. 11:18 No provider procedures requiring assistance completed. Patient did not have IV access ap3 during this emergency room visit. Administered Medications: 10:53 Drug: Rocephin (cefTRIAXone) IM 1 grams IM once Route: IM; Site: right vastus lateralis;ap3 11:19 Follow up: Response: No adverse reaction ap3 10:53 Drug: Perdido PO 10 mg-325 mg 1 tabs PO once Route: PO; ap3 11:18 Follow up: Response: No adverse reaction; Pain is decreased ap3 10:54 Drug: Ketorolac IM 60 mg IM once Route: IM; Site: left vastus lateralis; ap3 11:19 Follow up: Response: No adverse reaction; Pain is decreased ap3 Medication: 11:18 VIS not applicable for this client. ap3 Outcome: 09:45 Discharge ordered by . monika 11:18 Discharged to home ambulatory, with family, ap3 11:18 Condition: good 11:18 Discharge instructions given to patient, family, Instructed on discharge instructions, follow up and referral plans. medication usage, Demonstrated understanding of instructions, follow-up care, medications, Prescriptions given X 3, 11:19 Patient left the ED. ap3 Signatures: Brant Max MD MD cha Prokisch, Amanda RN RN ap3 Melonie Turner mg5
--- NOTE | 2024-02-17 09:45 | EDPHYS ---
Physician Documentation [facility] Name: Noman Cabral Jr Age: 33 yrs Sex: Male : 1990 Arrival Date: 02/17/2024 Time: 08:49 Bed 10 Private MD: ED Physician Brant Max HPI: 02/16 09:34 This 33 yrs old Male presents to ER via Ambulatory with complaints of monika Toothache. 09:34 The patient presents with pain, redness, swelling. The problem is located in the lower monika right third molar. Onset: The symptoms/episode began/occurred 2 day(s) ago. Duration: The symptoms are continuous, and are steadily getting worse. Modifying factors: The symptoms are alleviated by nothing, the symptoms are aggravated by chewing, cold fluids, food, hot fluids, talking. Associated signs and symptoms: The patient has no apparent associated signs or symptoms. Severity of symptoms: At their worst the symptoms were moderate, in the emergency department the symptoms are unchanged. The patient has experienced similar episodes in the past, a few times. Historical: - Allergies: 09:11 No Known Allergies; ap3 - PMHx: 09:11 None; ap3 - PSHx: 09:11 Right femur; ap3 - Immunization history:: Client reports receiving the 2nd dose of the Covid vaccine. - Infectious Disease History:: Denies. - Social history:: Smoking status: Patient reports the use of cigarette tobacco products, smokes one-half pack cigarettes per day. - Family history:: not pertinent. ROS: 09:34 Constitutional: Negative for fever, chills, and weight loss, Eyes: Negative for injury, monika pain, redness, and discharge, Neck: Negative for injury, pain, and swelling, Cardiovascular: Negative for chest pain, palpitations, and edema, Respiratory: Negative for shortness of breath, cough, wheezing, and pleuritic chest pain, Abdomen/GI: Negative for abdominal pain, nausea, vomiting, diarrhea, and constipation, Back: Negative for injury and pain, : Negative for injury, bleeding, discharge, and swelling, MS/Extremity: Negative for injury and deformity, Skin: Negative for injury, rash, and discoloration, Neuro: Negative for headache, weakness, numbness, tingling, and seizure, Psych: Negative for depression, anxiety, suicide ideation, homicidal ideation, and hallucinations, Allergy/Immunology: Negative for hives, rash, and allergies, Endocrine: Negative for neck swelling, polydipsia, polyuria, polyphagia, and marked weight changes, Hematologic/Lymphatic: Negative for swollen nodes, abnormal bleeding, and unusual bruising, 09:34 ENT: Positive for dental pain, Teeth pain Exam: 09:34 Constitutional: This is a well developed, well nourished patient who is awake, alert, monika and in no acute distress. Head/Face: Normocephalic, atraumatic. Eyes: Pupils equal round and reactive to light, extra-ocular motions intact. Lids and lashes normal. Conjunctiva and sclera are non-icteric and not injected. Cornea within normal limits. Periorbital areas with no swelling, redness, or edema. Neck: Trachea midline, no thyromegaly or masses palpated, and no cervical lymphadenopathy. Supple, full range of motion without nuchal rigidity, or vertebral point tenderness. No Meningismus. Chest/axilla: Normal chest wall appearance and motion. Nontender with no deformity. No lesions are appreciated. Cardiovascular: Regular rate and rhythm with a normal S1 and S2. No gallops, murmurs, or rubs. Normal PMI, no JVD. No pulse deficits. Respiratory: Lungs have equal breath sounds bilaterally, clear to auscultation and percussion. No rales, rhonchi or wheezes noted. No increased work of breathing, no retractions or nasal flaring. Abdomen/GI: Soft, non-tender, with normal bowel sounds. No distension or tympany. No guarding or rebound. No evidence of tenderness throughout. Back: No spinal tenderness. No costovertebral tenderness. Full range of motion. Male : Normal genitalia with no discharge or lesions. Skin: Warm, dry with normal turgor. Normal color with no rashes, no lesions, and no evidence of cellulitis. MS/ Extremity: Pulses equal, no cyanosis. Neurovascular intact. Full, normal range of motion. Neuro: Awake and alert, GCS 15, oriented to person, place, time, and situation. Cranial nerves II-XII grossly intact. Motor strength 5/5 in all extremities. Sensory grossly intact. Cerebellar exam normal. Normal gait. Psych: Awake, alert, with orientation to person, place and time. Behavior, mood, and affect are within normal limits. 09:34 ENT: Mouth: Oral mucosa: normal, pink and intact, moist, Gums: normal with healthy appearance, noted to have cellulitis, reddened, swollen, on the lower right third molar, Tongue: is normal, abscess, is not appreciated, drooling, is not appreciated, Vital Signs: 09:10 BP 161 / 96; Pulse 57; Resp 17; Temp 98.5; Pulse Ox 100% ; Weight 79.38 kg; Height 5 ap3 ft. 9 in. ; Pain 8/10; 09:10 Body Mass Index 25.84 (79.38 kg, 175.26 cm) ap3 09:10 Pain Scale: Adult ap3 MDM: 09:11 Patient medically screened. monika 09:42 Differential diagnosis: dental caries, gingivitis, dental abscess, pericoronitis, monika aphthous ulcers, acute necrotizing ulcerative gingivitis, gingivostomatitis. Data reviewed: vital signs, nurses notes. Consideration of Admission/Observation Escalation of care including admission/observation considered. I considered the following discharge prescriptions or medication management in the emergency department Medications were administered in the Emergency Department. See MAR. Test considered but Not performed: Labs: no labs. Care significantly affected by the following chronic conditions: none. Counseling: I had a detailed discussion with the patient and/or guardian regarding the historical points, exam findings, and any diagnostic results supporting the discharge/admit diagnosis, the need for outpatient follow up, for definitive care, a dentist, an oral maxilofacial specialist. Administered Medications: 10:53 Drug: Rocephin (cefTRIAXone) IM 1 grams IM once Route: IM; Site: right vastus lateralis;ap3 11:19 Follow up: Response: No adverse reaction ap3 10:53 Drug: [place] PO 10 mg-325 mg 1 tabs PO once Route: PO; ap3 11:18 Follow up: Response: No adverse reaction; Pain is decreased ap3 10:54 Drug: Ketorolac IM 60 mg IM once Route: IM; Site: left vastus lateralis; ap3 11:19 Follow up: Response: No adverse reaction; Pain is decreased ap3 Disposition Summary: 02/17/24 09:45 Discharge Ordered Notes: Location: Home monika Problem: new monika Symptoms: have improved monika Condition: Stable monika Diagnosis - Dental caries, unspecified monika Followup: monika - With: Private Physician - When: 2 - 3 days - Reason: Recheck today's complaints, Continuance of care, Re-evaluation by your physician Followup: monika - With: Zach Rodriguez DDS - When: 1 - 2 days - Reason: Recheck today's complaints, Re-evaluation by your physician Discharge Instructions: - Discharge Summary Sheet [facility] - Dental Caries, Adult [facility] - Dental Pain [facility] - Dental Pain, [id number] [facility] - Diet and Dental Disease [facility] Forms: - Medication Reconciliation Form [facility] - Antibiotic Education [facility] - Prescription Opioid Use [facility] - Patient Portal Instructions [facility] - Leadership Thank You Letter [facility] Prescriptions: - acetaminophen-codeine 300-30 mg Oral tablet - take 2 tablet ORAL route every 6 hours; 18 tablet; Refills: 0, Product [facility] Selection Permitted - Amoxicillin 500 mg Oral Capsule - take 1 capsule ORAL route every 8 hours for 10 days; 30 tablet; Refills: 0, [facility] Product Selection Permitted - Ibuprofen 600 mg Oral Tablet - take 1 tablet ORAL route every 6 hours As needed take with food; 30 tablet; [facility] Refills: 0, Product Selection Permitted Signatures: Brant Max MD MD [facility] Glenis Cruz RN RN ap3
[2024-02-17] MEDS ORDERED: CEFTRIAXONE 1000 MG/VIAL ONE (10:44)
[2024-02-17] MEDS ORDERED: KETOROLAC 30 MG/ML INJ ONE (10:44)
[2024-02-17] MEDS ORDERED: WATER FOR INJ,STERILE 10 ML ONE (10:45)
[2024-02-17] MEDS ORDERED: HYDROCODONE/APAP 10/325 TAB ONE (10:45)
[2024-02-17 12:49] VITALS: BP 161/96; TEMP 98.5; O2SAT 100
== END 2024-02-17 11:19 | disposition home or self-care (01) ==
LOC: ER 08:49
DX: K02.9 Dental caries, unspecified (principal)
CPT/HCPCS: J0696